=== PATIENT | male | born 1965 | race Caucasian/White ===

== ENCOUNTER 2019-06-10 16:05 | Outpatient (CLI) | payer OTHER ==
--- NOTE | 2019-06-10 16:53 | RAD ---
EXAM: 3 views of the left foot HISTORY: Left planar fasciitis COMPARISON: None FINDINGS: 3 views of the left foot shows no evidence of acute fracture or dislocation. No soft tissue swelling is seen. No degenerative changes are present. IMPRESSION: No evidence of acute osseous abnormality.
== END 2019-06-10 16:06 | disposition home or self-care (01) ==
LOC: NAV RAD 16:05
PROVIDERS: ATTEND Nurse Practitioner Family
DX: M72.2 Plantar fascial fibromatosis (principal)